=== PATIENT | male | born 2005 | race Caucasian/White ===

== ENCOUNTER 2025-05-06 01:35 | Day surgery (SDC) | payer OTHER, SELFPAY ==
[2025-05-06] VITALS (8 sets, daily range): BP systolic 104–141; BP diastolic 60–83; BMI 22.8
[2025-05-06 02:22] LABS: Hematocrit 45.1 % (39.0-52.0); Hemoglobin 15.8 g/dL (13.0-18.0); Mean Corp Hgb Conc. 35.0 g/dL (33.0-37.0); Mean Corpuscular Volume 87.9 fL (80.0-94.0); Nucleated Red Blood Cells % 0 % (-); Platelet Count 223 10^3/uL (130-400); Red Cell Dist. Width 12.2 % (11.5-14.5)
[2025-05-06 02:43] LABS: ALT (SGPT) 51 U/L (0-50); AST (SGOT) 32 U/L (17-59); Albumin 5.0 g/dl (3.5-5.0); Alkaline Phosphatase 57 U/L (38-126); Blood Urea Nitrogen 19 mg/dl (9-20); Calcium 9.9 mg/dl (8.4-10.2); Carbon Dioxide 28 mmol/L (22-30); Chloride 103 mmol/L (98-107); Estimated Creatinine Clearance > 125 ml/min; Glucose 102 mg/dl (70-99); Lipase 88 U/L (23-300); Potassium 4.1 mmol/L (3.5-5.1); Sodium 140 mmol/L (135-145); Total Protein 7.9 g/dl (6.3-8.2); eGFR > 60.00
--- NOTE | 2025-05-06 04:14 | ED.GENMED ---
History of Present Illness
General
Chief Complaint: Abdominal Pain
Source: patient and family
Exam Limitations: none
Time Seen by Provider: 05/06/25 01:54
Nursing documentation reviewed up to this point in time: agreed with
History of Present Illness
History of Present Illness:
Note:
CHIEF COMPLAINT(S)
Abdominal pain
HISTORY OF PRESENT ILLNESS
The patient is a 20-year-old male presenting with lower abdominal pain. The symptoms began after consuming a [employer] burrito approximately at 8 PM the previous evening. The pain is located in the lower abdomen, and the patient describes discomfort
when driving over road bumps, suggesting potential peritoneal irritation. The patient notes feeling warm, although they have not measured a fever. There is no report of difficulty urinating.
MEDICATIONS
The patient takes lorazepam 0.5 mg as needed for anxiety.
REVIEW OF SYSTEMS
- Abdominal: Lower abdominal pain after eating, discomfort exacerbated when driving over bumps.
- General: Reports feeling warm but no confirmed fever.
- Genitourinary: No problems urinating.
PHYSICAL EXAM
General: No acute distress.
Skin: Warm, dry.
Cardiovascular: Heart sounds normal.
Respiratory: Lung sounds normal.
PLAN
The patient is to undergo a CT scan to evaluate for potential appendicitis. The patient is advised not to consume anything by mouth unless directed otherwise by medical staff.
DIFFERENTIAL DIAGNOSIS
The Differential Diagnosis includes, in no particular order and is not limited to:
1. Appendicitis
2. Gastroenteritis
3. Urinary tract infection
4. Renal colic
5. Pelvic inflammatory disease
6. Diverticulitis
7. Inflammatory bowel disease
8. Irritable bowel syndrome
9. Constipation
10. Gastritis
Disposition:
SUMMARY OF ENCOUNTER
The patient is a 20-year-old male who presented with lower abdominal pain, and upon evaluation with a CT scan, was found to have acute uncomplicated appendicitis. Management included preparation for admission to Dr. Sanchez service. The patient was
started on piperacillin-tazobactam (Zosyn) and advised to remain nil per os (NPO). This management plan was discussed with the patient and his mother, both of whom agreed to the admission.
DISPOSITION
Admit.
ASSESSMENT
Acute uncomplicated appendicitis diagnosed by CT scan.
EMERGENCY TREATMENTS ADMINISTERED
Piperacillin-tazobactam administered.
MANAGEMENT OF THE PATIENTS CARE WAS DISCUSSED WITH
The patients care plan was discussed with Dr. Daniel ortega and the patients mother.
PLAN
Admission to hospital for further management of appendicitis, including continued IV antibiotic therapy and surgical evaluation.
MEDICAL DECISION MAKING
-Complexity of Data Reviewed: Chronic conditions affecting care include a differential diagnosis initially considered with possibilities such as appendicitis, gastroenteritis, urinary tract infection, renal colic, and others.
-Data:
Category 1
The diagnosis of acute appendicitis was confirmed through a CT scan.
Category 3
Discussion of management with Dr. Daniel ortega and the patients mother.
-Risk: Decisions regarding diagnostic testing with risks were considered, such as the use of CT imaging. Prescription medication was initiated, specifically piperacillin-tazobactam, and the patient was kept NPO to prepare for potential surgical
intervention.
DIAGNOSIS
- Acute appendicitis (K35.80)
Past History
Past History
ED Past Medical History: Psychiatric (Anxiety)
ED Past Surgical History: None
Social History
Tobacco: Non-smoker
Phy Exam
Physical Exam
Physical Exam:
.
Course
Orders/Labs/Results
Orders:
Orders
05/06/25 01:54
CT Abd/Pel (IV only)-DH only Urgent
Comment:
Reason For Exam: rlq abd pain
Urinalysis Reflex To Culture Urgent
05/06/25 02:10
Complete Blood Count/With Diff Urgent
Comprehensive Metabolic Panel Urgent
Lactic Acid Urgent
Lipase Urgent
05/06/25 04:02
Piperacillin/Tazo 4.5 Gram [Zosyn] 4.5 gram in 100 ml IV NOW
Abnormal Lab Results
05/06/25
02:10
WBC 11.2 H 10^3/uL
(4.8-10.8)
Absolute Neuts (auto) 7.8 H 10^3/uL
(1.4-6.5)
Lymphocytes % 20.1 L %
(20.5-51.1)
Glucose 102 H mg/dl
(70-99)
ALT 51 H U/L
(0-50)
05/06/25 02:10
05/06/25 02:10
Vital Signs
Initial and Last Documented VS:
Initial Vital Signs
Temp Pulse Resp BP Pulse Ox
97.9 F 67 16 121/79 100
05/06/25 01:39 05/06/25 01:39 05/06/25 01:39 05/06/25 01:39 05/06/25 01:39
Last Documented Vital Signs
Temp Pulse Resp BP Pulse Ox
97.9 F 67 16 121/79 100
05/06/25 01:39 05/06/25 01:39 05/06/25 01:39 05/06/25 01:39 05/06/25 01:39
*Pulse Oximetry
SaO2: 100
Oxygen Mode of Delivery: Room air
Patient hypoxic: no
*Critical Care Note
Total Time (30-74mins, 75-104mins- exclusive of procedures): Not Applicable
ED Attending Note
-
Portions of this chart may have been created with voice recognition software.� Occasional wrong word or��sound alike� substitutions may have occurred due to the inherent limitations of voice recognition software.
Discharge Plan
Departure
Patient Disposition: Admit
Date of Disposition: 05/06/25
Time of Disposition: 04:14
Admit to: Med/Surg
Presentation/result/management discussed w/ accepting MD/DO: Hospitalist
Condition: Fair
Discharge Problem:
Acute appendicitis
Prescriptions:
No Action
propranolol 10 mg Tablet
10 mg PO PRN PRN (Reason: anxiety)
Referrals:
Dg Devi DO [Family Provider, Family Practice]
Interventions
Interventions:
*General Assessment Last Done: 05/06/25 01:58
*Neglect/Abuse Screening Last Done: 05/06/25 01:39
*ED COVID-19 Vaccine History Last Done: 05/06/25 01:39
*ED Influenza Vaccine History Last Done: 05/06/25 01:39
[facility] Fall Risk Assessment Tool Last Done: 05/06/25 01:58
*Risk Screen - Suicide (C-SSRS) Last Done: 05/06/25 01:58
AT-Ajzdox-Tfieydvqdx Assessment Last Done: 05/06/25 01:58
Discharge Date and Time
Print Language: LITHUANIAN
[2025-05-06] MEDS: ZOSYN 100 IV (04:17)
--- NOTE | 2025-05-06 05:05 | HPS.HSE ---
Addendum entered and electronically signed by Ariel Gerber MD 05/06/25 09:26:
I saw and examined the patient.
The Smasher's note was reviewed and I agree with the note.
Comment: Acute onset abd pain, generalized with migration to RLQ, endorses anorexia, denies f/c/n/v. AFVSS, mild leukocytosis noted. CT c/w acute appendicitis. Surgery discussed in detail as well as risks and recovery. He is concerned about
anesthesia and has severe anxiety (managed with propranolol at home). We discussed the option of non-op mgmt with assoc risks including longer stay, more pain, higher risk of eprforation/abscess and relatively high chance of recurrence within a few
months. He is unsure if he wants to proceed. Will tentatively plan for OR, if he decides to defer will manage non-op.
Original Note:
Family Physician
-
Family Physician: Dg Devi
Chief Complaint
-
abd pain
History of Present Illness
The patient is a 20-year-old male hx of anxiety presenting with lower abdominal pain. The symptoms began abruptly round 11pm. States he felt fine up until that point. The pain is located in the lower abdomen, and the patient describes discomfort
when driving over road bumps, suggesting potential peritoneal irritation. The patient notes feeling warm, although they have not measured a fever. There is no report of difficulty urinating.
ED treatment:
CT abd consistent with early appendicitis.
zosyn started
Pt initially expressed desire to go home with abx due to high levels of anxiety about potential OR etc.
ED doc discussed with pt and mom that he should stay and discuss with surgeon in am regarding risks and benefits of oral abx treatment alone.
Agreeable to stay to discuss with surgeon.
Medical History
Past Medical History
Past Medical History: Reports Psychiatric (anxiety takes propranolol prn)
Past Surgical History: Reports Orthopedic (right ACL)
Social History
Tobacco: Vaping
Alcohol: Occasional
Drug: None
Personal: Single
Living: With Family
Family History
Family History: Not pertinent
Allergies / Home Medications
Allergies reflects when Allergies were last updated in [employer].
Home Medications with original date entered in [employer]
Allergy/Medication List:
Allergies
Allergy/AdvReac Type Severity Reaction Status Date / Time
No Known Allergies Allergy Verified 05/06/25 01:38
Home Medications
propranolol 10 mg tablet 10 mg PO PRN PRN anxiety 05/06/25
ashwaganda supplement
l-theanine supplement
Review of Systems
-
History Source: Patient and Family (mom)
A 12 point ROS was completed and negative except as noted: Yes
Constitutional: Reports No Symptoms
EENT: Reports No Symptoms
Respiratory: Reports No Symptoms
Cardiac: Reports No Symptoms
Abdomen/GI: Reports Abdominal Pain (RLQ)
: Reports No Symptoms
Musculoskeletal: Reports No Symptoms
Skin: Reports No Symptoms
Neurological: Reports No Symptoms
Endocrine: Reports No Symptoms
Hematologic/Lymphatic: Reports No Symptoms
Psych: Reports Anxiety
Physical Exam
Vital Signs
Vital Signs
Temp Pulse Resp BP Pulse Ox
97.9 F 67 16 121/79 100
05/06/25 01:39 05/06/25 01:39 05/06/25 01:39 05/06/25 01:39 05/06/25 04:15
Physical Exam
General: Well Developed, Well Nourished, No Apparent Distress and Comfortable
HEENT: NormoCephalic, Moist mucous membranes and Atraumatic
Respiratory: Clear and Non Labored Respirations
Cardiac: S1/S2 and Regular Rhythm
Breast: Deferred by me
GI: Soft, Normal Bowel Sounds and Tender (mildly tender to deep palpation RLQ); No Non Tender or Non Distended
Rectal: Deferred by Provider
Genito-urinary: Deferred by me
Musculoskeletal: No Clubbing and No Cyanosis
Skin: Warm and Dry
Neuro: Awake, Oriented and AO x 3
Hematologic/Lymphatic: No Lymphadenopathy
Psych: Anxious (highly anxious , legs shaking and some nausea due to anxiety)
Laboratory Results
-
05/06/25 02:10
05/06/25 02:10
Laboratory Results
Lactic Acid 0.9 mmol/L (0.7-2.0) 05/06/25 02:10
Total Bilirubin 0.5 mg/dl (0.2-1.3) 05/06/25 02:10
AST 32 U/L (17-59) 05/06/25 02:10
ALT 51 U/L (0-50) H 05/06/25 02:10
Alkaline Phosphatase 57 U/L (38-126) 05/06/25 02:10
Lipase 88 U/L (23-300) 05/06/25 02:10
Impression/Plan
-
PLAN:
Admit to service of Dr Tijerina
med surg obs
#acute appendicitis
-npo x meds
-ivf nss @100
-pain control: tylenol, toradol
-cont zosyn
#anxiety
- Doesn't think this anxiety will be controlled by propanolol
-ativan 0.5g now and reassess effectiveness
*PT ultimately desires to go home with abx first and defer surgery. Discussed with pt and mom that surgeon will discuss risks and benefits of abx alone vs surgery
DVT proph: scd
Full code
[2025-05-06] MEDS: ATIVAN 0.5 MG PO (05:27)
[2025-05-06 05:39] LABS: Urine Character Clear (Clear)
[2025-05-06 06:22] LABS: Urine Squamous Cell 0-2 /LPF (Few)
[2025-05-06 06:23] LABS: Urine Red Blood Cell 0-2 /HPF (0-2); Urine White Cell 0-2 /HPF (0-5)
[2025-05-06] MEDS: NSS 1000 IV (07:59)
--- NOTE | 2025-05-06 11:32 | W.IMMPOSTOP ---
Addendum entered and electronically signed by Ariel Gerber MD 05/06/25 11:36:
Mom updated by phone
Original Note:
Surgical Immed Post Op Note
-
Primary Surgeon: Zabrina
Assisting: Gaby URIAS
Pre-op Diagnosis: Acute appendicitis
Post-op Diagnosis: Same
Procedure Performed: Laparoscopic appendectomy
Anesthesia Type: GETA
Specimen / Cultures: Appendix
Estimated Blood Loss: 5cc
Complications: None immediate
Operative Findings: Mildly inflamed appendix, scant turbid fluid suctioned from pelvis
--- NOTE | 2025-05-06 11:33 | OR.RPT ---
Operative Report
Operative Report
Primary Surgeon: Zabrina
Assisting: Gaby URIAS
Pre-op Diagnosis: Acute appendicitis
Post-op Diagnosis: Same
Procedure Performed: Laparoscopic appendectomy
Anesthesia Type: GETA
Specimen / Cultures: Appendix
Estimated Blood Loss: 5cc
Complications: None immediate
Operative Findings: Mildly inflamed appendix, scant turbid fluid suctioned from pelvis
Date of Surgery: 05/06/25
Indications: This 20M developed right lower quadrant abdominal pain and on workup was found to have acute appendicitis. Laparoscopic appendectomy was elected.
Description of procedure: The patient was placed on the operating table in the supine position. General anesthesia was induced. A time-out was completed verifying correct patient, procedure, site, positioning, and special equipment prior to
beginning this procedure. An orogastric tube was placed. The abdomen was prepped and draped in the usual sterile fashion. A stab incision was made in left upper quadrant and the Veress needle was inserted. Proper position was confirmed by aspiration
and saline meniscus test. The abdomen was insufflated with carbon dioxide to a pressure of 12 mmHg. The patient tolerated insufflation well.
A 5mm optical trocar was then inserted at the left lower quadrant. The laparoscope was inserted and the abdomen inspected. No injuries from initial trocar placement or Veress needle insertion were noted. Additional trocars were then inserted in the
following locations: a 12-mm trocar at the umbilicus and a 5-mm trocar midline in the suprapubic space. The abdomen was inspected and no abnormalities were found. The table was placed in the Trendelenburg position with the right side up. The tip of
the appendix was gently grasped with an atraumatic grasper and retracted toward the patient�s feet and abdominal wall. This maneuver exposed the appendiceal blood supply which was controlled with the Ligasure device. Following this, a laparoscopic
linear cutting stapler with a 45mm pastor load was deployed and used to transect the appendix at its base. The appendix was placed in an endoscopic retrieval bag, removed through the umbilical port, and passed off the table as a specimen.
We then turned our attention to the staple line, which was noted to be hemostatic. Scant turbid fluid was suctioned from the pelvis. The umbilical trocar site was closed at the fascial level laparoscopically with 2-0 PDS under direct vision.
Secondary trocars were removed under direct vision and noted to be hemostatic. The laparoscope was withdrawn and the abdomen was allowed to collapse. The skin was closed with subcuticular sutures of 4-0 monocryl and topical skin adhesive. The
orogastric tube was removed.
The patient tolerated the procedure well and was taken to the postanesthesia care unit in stable condition.
--- NOTE | 2025-05-06 11:57 | CM ---
club manager reviewed patient's chart and met with patient and mother at bedside, patient is OBS, OBS letter signed and placed on chart, Patient lives with mother in a 2 story home, patient is independent with adl's and ambulation, no dme, patient
drives, home with mother when stable, no needs.
PCP: Dr. Devi
Pharmacy: [facility]
[2025-05-06] MEDS: SUBLIMAZE 25 MCG IV (12:07)
--- NOTE | 2025-05-06 12:51 | PTCARENOTE ---
pt received from PACU via bed at 1240. pt awake, father at bedside. 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 oriented to post op plan of care.
[2025-05-06] MEDS: TYLENOL 650 MG PO (14:40)
--- NOTE | 2025-05-06 15:02 | PTCARENOTE ---
pt tolerated regular diet, denies nausea. c/o 'discomfort' in abdomen, denies need for pain medication. medicated w/Tylenol per MAR. Out of bed , ambulating in room, voided large amount of urine. father at bedside. discharge instructions
reviewed with father and pt.
== END 2025-05-06 11:38 | disposition home or self-care (01) ==
LOC: EMR 01:35
PROVIDERS: ATTENDING PHYSICIAN Surgery; FAMILY PHYSICIAN Family Medicine; OTHER PHYSICIAN Student in an Organized Health Care Education/Training Program
DX: K35.80 Unspecified acute appendicitis (principal); F41.9 Anxiety disorder, unspecified; F17.290 Nicotine dependence, other tobacco product, uncomplicated; Z79.899 Other long term (current) drug therapy
CPT/HCPCS: 44970; 74177; 80053; 81003; 81015; 83605; 83690; 85025; 88304; G0378; Q9967